=== PATIENT | female | born 1990 | race Caucasian/White ===

== ENCOUNTER 2016-08-23 18:35 | Emergency (ER) | payer OTHER ==
[2016-08-23 19:06] VITALS: BP 116/74; PULSE 69; RESP 18; TEMP 98.1
--- NOTE | 2016-08-23 20:03 | ED ---
ENT HPI - General Chief complaint: ENT Stated complaint: HEARING LOSS LEFT EAR Time Seen by Provider: 08/23/16 19:50 Source: patient, RN notes reviewed, old records reviewed Mode of arrival: ambulatory Limitations: no limitations - History of Present Illness Initial comments: Patient is a 25 year old female with one day of right ear tinnitus and decreased hearing. Patient denies any dizziness or headache. She reports that symptoms started this morning, she denies any loud music, barotrauma, or fevers or other injury. Denies drainage from the ear. 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 Denies any chest pain, shortness of breath, headache, vision changes. - Related Data Previous Rx's Medication Instructions Recorded Amoxicillin 500 mg PO Q12HR #14 cap 08/23/16 Allergies Allergy/AdvReac Type Severity Reaction Status Date / Time No Known Allergies Allergy Verified 08/23/16 19:07 Review of Systems ROS Statement: Those systems with pertinent positive or pertinent negative responses have been documented in the HPI. ROS Other: All systems not noted in ROS Statement are negative. Past Medical History Past Medical History: No Reported History History of Any Multi-Drug Resistant Organisms: None Reported Past Surgical History: No Surgical Hx Reported Additional Past Surgical History / Comment(s): oral surgery Past Psychological History: No Psychological Hx Reported Smoking Status: Never smoker Past Alcohol Use History: Occasional Past Drug Use History: None Reported General Exam Limitations: no limitations General appearance: alert, in no apparent distress Head exam: Present: atraumatic, normocephalic, normal inspection Eye exam: Present: normal appearance, PERRL, EOMI. Absent: scleral icterus, conjunctival injection, periorbital swelling ENT exam: Present: normal exam, normal oropharynx, mucous membranes moist. Absent: TM's normal bilaterally (slight erythema behind right TM, no fluid collection. ) Neck exam: Present: normal inspection. Absent: tenderness, meningismus, lymphadenopathy Respiratory exam: Present: normal lung sounds bilaterally. Absent: respiratory distress, wheezes, rales, rhonchi, stridor Cardiovascular Exam: Present: regular rate, normal rhythm, normal heart sounds. Absent: systolic murmur, diastolic murmur, rubs, gallop, clicks GI/Abdominal exam: Present: soft, normal bowel sounds. Absent: distended, tenderness, guarding, rebound, rigid Extremities exam: Present: normal inspection, full ROM, normal capillary refill. Absent: tenderness, pedal edema, joint swelling, calf tenderness Back exam: Present: normal inspection Neurological exam: Present: alert, oriented X3, CN II-XII intact Psychiatric exam: Present: normal affect, normal mood Skin exam: Present: warm, dry, intact, normal color. Absent: rash Course Vital Signs 08/23/16 19:02 Temperature 98.1 F Pulse Rate 69 Respiratory 18 Rate Blood Pressure 116/74 O2 Sat by Pulse 99 Oximetry Medical Decision Making - Medical Decision Making Patient is a 25 year old female with one day of right ear tinnitus and decreased hearing. Patient denies any dizziness or headache. She reports that symptoms started this morning, she denies any loud music, barotrauma, or fevers or other injury. Denies drainage from the ear. 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 Denies any chest pain, shortness of breath, headache, vision changes. Patient has mild right TM erythema, will be started on amoxicillin. Advised follow up with ENT specialist. Discussed return if fever, or dizziness occur. PAtient agrees to treatment plan and will comply, return parameters discussed. Disposition Clinical Impression: Tinnitus, left ear, Infection of left ear Disposition: HOME SELF-CARE Condition: Good Instructions: Tinnitus (ED) Additional Instructions: Patient advised to take antibiotic prescription. Follow-up with primary care provider. Return to the emergency department if any alarming signs or symptoms occur. Prescriptions: Amoxicillin 500 mg PO Q12HR #14 cap Referrals: Shayla Bella DO [Primary Care Provider] - 1-2 days Antolin Billy MD [STAFF PHYSICIAN] - 1-2 days Time of Disposition: 20:02
== END 2016-08-23 20:07 | disposition home or self-care (01) ==
LOC: EC 18:35
DX: H93.13 Tinnitus, bilateral (principal); H66.92 Otitis media, unspecified, left ear
CPT/HCPCS: 99283

== ENCOUNTER 2020-04-28 22:10 | Emergency (ER) | payer OTHER ==
[2020-04-28 22:26] VITALS: BP 117/77; PULSE 99; RESP 18; TEMP 98
[2020-04-28] MEDS ORDERED: KETOROLAC 15 MG/ML 1 ML VIAL IM STA (23:52)
[2020-04-28] MEDS ORDERED: AMOXIC-POT CLAV 875MG STARTER PACK 2 TAB BTL PO STA (23:52)
[2020-04-28] MEDS ORDERED: ACET/COD 300 MG/30 MG STARTER PACK 6 TAB BTL PO STA (23:52)
--- NOTE | 2020-04-28 23:54 | ED ---
General Adult HPI - General Chief complaint: Animal Bite Stated complaint: Cat Bite infection Time Seen by Provider: 04/28/20 23:28 Source: patient, family Mode of arrival: ambulatory Limitations: no limitations - History of Present Illness Initial comments: 29-year-old female patient presents to the emergency department today for evaluation of Bite to the left ankle and foot. Patient states this occurred Tuesday evening. States over the last 24 hours the area has become red, swollen, and more painful. Denies any drainage from the wounds. States she did cleanse the area at the time of injury. She denies any fever or chills. Denies nausea or vomiting. States denies taking anything for pain prior to arrival. Denies any chance of . States her tetanus vaccine is up-to-date within the last 5 years. Patient denies any recent rash, cough, shortness of breath, chest pain, abdominal pain, nausea, vomiting, diarrhea, constipation, back pain, numbness, tingling, dizziness, weakness, hematuria, dysuria, urinary urgency, urinary frequency, headache, visual changes, or any other complaints. - Related Data Previous Rx's Medication Instructions Recorded Amoxicillin 500 mg PO Q12HR #14 cap 08/23/16 Amoxic-Pot Clav 875-125Mg 1 tab PO Q12HR #20 tablet 04/28/20 [Augmentin 875-125] Ibuprofen [Motrin] 600 mg PO Q8HR PRN #30 tab 04/28/20 Allergies Allergy/AdvReac Type Severity Reaction Status Date / Time No Known Allergies Allergy Verified 08/23/16 19:07 Review of Systems ROS Statement: Those systems with pertinent positive or pertinent negative responses have been documented in the HPI. ROS Other: All systems not noted in ROS Statement are negative. Past Medical History Past Medical History: No Reported History History of Any Multi-Drug Resistant Organisms: None Reported Past Surgical History: No Surgical Hx Reported Additional Past Surgical History / Comment(s): oral surgery Past Psychological History: No Psychological Hx Reported Smoking Status: Never smoker Past Alcohol Use History: Occasional Past Drug Use History: None Reported General Exam Limitations: no limitations General appearance: alert, in no apparent distress, other (This is a well- developed, well-nourished adult female patient in no acute distress. Vital signs upon presentation are temperature 98.0F, pulse 99, respirations 18, blood pressure 117/77, pulse ox 99% on room air.) ENT exam: Present: normal exam, normal oropharynx, mucous membranes moist Respiratory exam: Present: normal lung sounds bilaterally. Absent: respiratory distress, wheezes, rales, rhonchi, stridor Cardiovascular Exam: Present: regular rate, normal rhythm, normal heart sounds. Absent: systolic murmur, diastolic murmur, rubs, gallop, clicks Extremities exam: Present: full ROM, normal capillary refill, other (There is area of erythema, swelling with a central puncture wounds. There is also swelling and erythema noted over the plantar surface of the left foot. Skin is otherwise pink, warm, dry. Cap refill less than 3 seconds. Pedal and posttibial pulses are 2+.). Absent: normal inspection, tenderness, pedal edema, joint swelling, calf tenderness Neurological exam: Present: alert, oriented X3, CN II-XII intact Psychiatric exam: Present: normal affect, normal mood Skin exam: Present: warm, dry, intact, normal color. Absent: rash Course Vital Signs 04/28/20 22:21 Temperature 98.0 F Pulse Rate 99 Respiratory 18 Rate Blood Pressure 117/77 O2 Sat by Pulse 99 Oximetry Medical Decision Making - Medical Decision Making 29-year-old female patient percents to the emergency department today for evaluation of a cat bite to the left ankle and foot. Physical examination did reveal cellulitis over the left ankle and left plantar foot. There are puncture wounds noted. No drainage. She is afebrile normal vital signs. This is her cat and is up to date on immunizations. We will start Augmentin. She is given ibuprofen for symptom relief. She is instructed to follow-up with her primary care physician for recheck in 1-2 days. Return parameters were discussed in detail. She verbalizes understanding and agrees with this plan. Case discussed with my attending Dr. Munson. Disposition Clinical Impression: Cat bite of left ankle, Cellulitis of left ankle Disposition: HOME SELF-CARE Condition: Good Instructions (If sedation given, give patient instructions): Animal Bite (ED), Cellulitis (ED) Additional Instructions: Complete antibiotic prescription in full. Follow-up with your primary care physician for recheck in 1-2 days. Take pain medications as directed. Return to the emergency department for any new, worsening, or concerning symptoms. Prescriptions: Amoxic-Pot Clav 875-125Mg [Augmentin 875-125] 1 tab PO Q12HR #20 tablet Ibuprofen [Motrin] 600 mg PO Q8HR PRN #30 tab PRN Reason: Pain Is patient prescribed a controlled substance at d/c from ED?: No Referrals: None,Stated [Primary Care Provider] - 1-2 days Time of Disposition: 23:54
== END 2020-04-29 00:17 | disposition home or self-care (01) ==
LOC: EC 22:10
DX: L03.116 Cellulitis of left lower limb (principal); S91.032A Puncture wound without foreign body, left ankle, initial encounter; W55.01XA Bitten by cat, initial encounter
CPT/HCPCS: 99283; 96372; J1885

== ENCOUNTER 2022-10-11 21:24 | Observation (INO) | payer OTHER ==
[2022-10-11] MEDS ORDERED: KETOROLAC 15 MG/ML 1 ML VIAL IVP STA (21:42)
[2022-10-11] MEDS ORDERED: SODIUM CHLORIDE 0.9% 1,000 ML IV STA (21:42)
--- NOTE | 2022-10-11 22:05 | ED ---
Abdominal Pain HPI - General Chief Complaint: Abdominal Pain Stated Complaint: Abdominal pain, Nausea Time Seen by Provider: 10/11/22 21:36 Source: patient, RN notes reviewed Mode of arrival: ambulatory Limitations: no limitations - History of Present Illness Initial Comments: This is a 32-year-old female who presents to the emergency department for abdo cecilia pain. States that about a week ago, she was stung by a bee and went to urgent care. She was subsequently started on a course of steroids, which she finished 3 days ago. However, states that just prior to being stung she had been developing upper abdominal pain that seemed to occur in waves and fluctuates. She has associated nausea with this. Unsure if this is related to any specific foods. Denies any history of similar symptoms in the past. Denies any known problems with her gallbladder. Denies any changes in bowel/bladder habits. She has felt hot and sweaty at times, but does not believe that she has actually had a fever. Denies any fevers, chills, sore throat, cough, dyspnea, chest pain, palpitations, diarrhea, back pain, or headaches. MD Complaint: abdominal pain Location: RUQ, epigastric - Related Data Home Medications Medication Instructions Recorded Confirmed EPINEPHrine (Auto Inject) [Epipen] 0.3 mg IM ONCE PRN 10/11/22 10/11/22 Allergies Allergy/AdvReac Type Severity Reaction Status Date / Time bee venom protein (honey bee) AdvReac Swelling Verified 10/11/22 22:23 Review of Systems ROS Statement: Those systems with pertinent positive or pertinent negative responses have been documented in the HPI. ROS Other: All systems not noted in ROS Statement are negative. Past Medical History Past Medical History: No Reported History History of Any Multi-Drug Resistant Organisms: None Reported Past Surgical History: No Surgical Hx Reported Additional Past Surgical History / Comment(s): oral surgery Past Psychological History: No Psychological Hx Reported Smoking Status: Never smoker Past Alcohol Use History: Occasional Past Drug Use History: None Reported General Exam Limitations: no limitations General appearance: alert, in no apparent distress Head exam: Present: atraumatic, normocephalic, normal inspection Respiratory exam: Present: normal lung sounds bilaterally. Absent: respiratory distress, wheezes, rales, rhonchi, stridor Cardiovascular Exam: Present: regular rate, normal rhythm, normal heart sounds. Absent: systolic murmur, diastolic murmur, rubs, gallop, clicks GI/Abdominal exam: Present: soft, tenderness (RUQ), normal bowel sounds. Absent: distended Neurological exam: Present: alert, oriented X3, CN II-XII intact Psychiatric exam: Present: normal affect, normal mood Skin exam: Present: warm, dry, intact, normal color. Absent: rash Course Vital Signs 10/11/22 10/11/22 10/11/22 21:30 22:57 23:31 Temperature 98.4 F Pulse Rate 91 Respiratory 18 16 Rate Blood Pressure 123/83 125/86 117/78 O2 Sat by Pulse 96 97 98 Oximetry Medical Decision Making - Medical Decision Making This is a 32-year-old female who presents to the emergency department for abdominal pain. Was pt. sent in by a medical professional or institution? @ -No Did you speak to anyone other than the patient for history? @ -No Did you review nursing and triage notes? @ -Yes, and I agree, it is accurate with regards to the patient's symptoms. Were old charts reviewed? @ -No Differential Diagnosis? @ -Differential Abdominal Pain Women: Appendicitis, Cholecystitis, diverticulosis, ischemic bowel, pancreatitis, hepatitis, UTI, gastroenteritis, AAA, incarcerated hernia, bowel obstruction, constipation, inflammatory bowel, hepatitis, peptic ulcer disease, splenic infarction, perforated viscus, vulvitis, ovarian torsion, PID, kidney stone, placenta abruption, this is not meant to be an all-inclusive list EKG interpreted by me (3pts min.)? @ -Not obtained X-rays interpreted by me (1pt min.)? @ -Not obtained CT interpreted by me (1pt min.)? @ -Not obtained U/S interpreted by me (1pt. min.)? @ -Gallbladder ultrasound obtained. My interpretation identifies cholelithiasis and gallbladder wall thickening. What testing was considered but not performed? (CT, X-rays, U/S, labs)? Why? @ -None What meds were considered but not given? Why? @ -None Did you discuss the management of the patient with other professionals? @ -Yes, Dr. Delong, who accepts the patient for admission. Did you reconcile home meds? @ -No Was smoking cessation discussed for >3mins.? @ -No Was critical care preformed (if so, how long)? @ -No Were there social determinants of health that impacted care today? How? (Homelessness, low income, unemployed, alcoholism, drug addiction, transportation, low edu. Level, literacy, decrease access to med. care, longterm, rehab)? @ -No Was there de-escalation of care discussed even if they declined? (Discuss DNR or withdrawal of care, Hospice)? @ -No What co-morbidities impacted this encounter? (DM, HTN, Smoking, COPD, CAD, Cancer, CVA, Hep., AIDS, mental health diagnosis, sleep apnea, morbid obesity)? @ -None Was patient admitted / discharged? @ -Admitted. Lab work obtained revealing leukocytosis and was otherwise non actionable. Urinalysis consistent with infection and urine was sent for culture. Patient does report an increase in urinary urgency and frequency, however she states that this is an ongoing intermittent issue for her. She was given IV fluids and Toradol with improvement in symptoms. Gallbladder ultrasound obtained revealing cholelithiasis with gallbladder wall thickening and pericholecystic fluid, consistent with acute cholecystitis. Blood cultures were obtained and the patient was started on IV Zosyn and maintenance fluids. Patient admitted to general surgery for acute cholecystitis. Patient kept NPO. Undiagnosed new problem with uncertain prognosis? @ -None Drug Therapy requiring intensive monitoring for toxicity (Heparin, Nitro, Insulin, Cardizem)? @ -None Were any procedures done? @ -None Diagnosis/symptom? @ -Acute cholecystitis, UTI Acute, or Chronic, or Acute on Chronic? @ -Acute Uncomplicated (without systemic symptoms) or Complicated (systemic symptoms)? @ -Uncomplicated Side effects of treatment? @ -None Exacerbation, Progression, or Severe Exacerbation] @ -Not applicable Poses a threat to life or bodily function? @ -Yes This case was discussed in detail with the attending ED physician, Dr. Louis. Presentation, findings, and treatment plan discussed in detail as well. - Lab Data Result diagrams: 10/11/22 21:54 10/11/22 21:54 Lab Results 10/11/22 10/11/22 10/11/22 Range/Units 21:43 21:54 21:54 WBC 16.0 H (3.8-10.6) k/uL RBC 4.47 (3.80-5.40) m/uL Hgb 13.7 (11.4-16.0) gm/dL Hct 39.7 (34.0-46.0) % MCV 88.8 (80.0-100.0) fL MCH 30.6 (25.0-35.0) pg MCHC 34.5 (31.0-37.0) g/dL RDW 13.2 (11.5-15.5) % Plt Count 344 (150-450) k/uL MPV 7.8 Neutrophils % 72 % Lymphocytes % 16 % Monocytes % 7 % Eosinophils % 4 % Basophils % 0 % Neutrophils # 11.5 H (1.3-7.7) k/uL Lymphocytes # 2.6 (1.0-4.8) k/uL Monocytes # 1.1 H (0-1.0) k/uL Eosinophils # 0.6 (0-0.7) k/uL Basophils # 0.0 (0-0.2) k/uL Sodium 136 L (137-145) mmol/L Potassium 4.2 (3.5-5.1) mmol/L Chloride 99 (98-107) mmol/L Carbon Dioxide 28 (22-30) mmol/L Anion Gap 9 mmol/L BUN 15 (7-17) mg/dL Creatinine 0.56 (0.52-1.04) mg/dL Est GFR (CKD-EPI)AfAm >90 (>60 ml/min/1.73 sqM) Est GFR (CKD-EPI)NonAf >90 (>60 ml/min/1.73 sqM) Glucose 89 (74-99) mg/dL Plasma Lactic Acid Norberto (0.7-2.0) mmol/L Calcium 9.2 (8.4-10.2) mg/dL Total Bilirubin 0.4 (0.2-1.3) mg/dL AST 22 (14-36) U/L ALT 20 (4-34) U/L Alkaline Phosphatase 96 (38-126) U/L Total Protein 7.3 (6.3-8.2) g/dL Albumin 4.0 (3.5-5.0) g/dL Amylase 45 (30-110) U/L Lipase 89 (23-300) U/L HCG, Qual Not Detected Urine Color Light Yellow Urine Appearance Clear (Clear) Urine pH 6.0 (5.0-8.0) Ur Specific [place] 1.011 (1.001-1.035) Urine Protein Negative (Negative) Urine Glucose (UA) 1+ H (Negative) Urine Ketones Negative (Negative) Urine Blood Negative (Negative) Urine Nitrite Positive H (Negative) Urine Bilirubin Negative (Negative) Urine Urobilinogen <2.0 (<2.0) mg/dL Ur Leukocyte Esterase Large H (Negative) Urine RBC 2 (0-5) /hpf Urine WBC 13 H (0-5) /hpf Ur Squamous Epith Cells 2 (0-4) /hpf Urine Bacteria Occasional H (None) /hpf Urine Mucus Rare H (None) /hpf 10/11/22 Range/Units 21:54 WBC (3.8-10.6) k/uL RBC (3.80-5.40) m/uL Hgb (11.4-16.0) gm/dL Hct (34.0-46.0) % MCV (80.0-100.0) fL MCH (25.0-35.0) pg MCHC (31.0-37.0) g/dL RDW (11.5-15.5) % Plt Count (150-450) k/uL MPV Neutrophils % % Lymphocytes % % Monocytes % % Eosinophils % % Basophils % % Neutrophils # (1.3-7.7) k/uL Lymphocytes # (1.0-4.8) k/uL Monocytes # (0-1.0) k/uL Eosinophils # (0-0.7) k/uL Basophils # (0-0.2) k/uL Sodium (137-145) mmol/L Potassium (3.5-5.1) mmol/L Chloride (98-107) mmol/L Carbon Dioxide (22-30) mmol/L Anion Gap mmol/L BUN (7-17) mg/dL Creatinine (0.52-1.04) mg/dL Est GFR (CKD-EPI)AfAm (>60 ml/min/1.73 sqM) Est GFR (CKD-EPI)NonAf (>60 ml/min/1.73 sqM) Glucose (74-99) mg/dL Plasma Lactic Acid Norberto 0.8 (0.7-2.0) mmol/L Calcium (8.4-10.2) mg/dL Total Bilirubin (0.2-1.3) mg/dL AST (14-36) U/L ALT (4-34) U/L Alkaline Phosphatase (38-126) U/L Total Protein (6.3-8.2) g/dL Albumin (3.5-5.0) g/dL Amylase (30-110) U/L Lipase (23-300) U/L HCG, Qual Urine Color Urine Appearance (Clear) Urine pH (5.0-8.0) Ur Specific [place] (1.001-1.035) Urine Protein (Negative) Urine Glucose (UA) (Negative) Urine Ketones (Negative) Urine Blood (Negative) Urine Nitrite (Negative) Urine Bilirubin (Negative) Urine Urobilinogen (<2.0) mg/dL Ur Leukocyte Esterase (Negative) Urine RBC (0-5) /hpf Urine WBC (0-5) /hpf Ur Squamous Epith Cells (0-4) /hpf Urine Bacteria (None) /hpf Urine Mucus (None) /hpf - Radiology Data Radiology results: report reviewed, image reviewed Disposition Clinical Impression: Acute cholecystitis, UTI (urinary tract infection) Disposition: ADMITTED IP TO THIS HOSP
[2022-10-11 22:32] LABS: HCG,Qualitative Serum Not Detected
[2022-10-11 22:34] LABS: ALT 20 U/L (4-34); AST 22 U/L (14-36); African American GFR (CKD) >90 (>60 ml/min/1.73 sqM); Alkaline Phosphatase 96 U/L (38-126); Amylase 45 U/L (30-110); Anion Gap 9 mmol/L; Blood Urea Nitrogen 15 mg/dL (7-17); Calcium 9.2 mg/dL (8.4-10.2); Carbon Dioxide 28 mmol/L (22-30); Chloride 99 mmol/L (98-107); Glucose 89 mg/dL (74-99); Lipase 89 U/L (23-300); Non-African American GFR(CKD) >90 (>60 ml/min/1.73 sqM); Potassium 4.2 mmol/L (3.5-5.1); Sodium 136 mmol/L (137-145); Total Bilirubin 0.4 mg/dL (0.2-1.3); Total Protein 7.3 g/dL (6.3-8.2)
[2022-10-11 22:36] LABS: Basophils % (A) 0 %; Eosinophils # (A) 0.6 k/uL (0-0.7); Eosinophils % (A) 4 %; HCT 39.7 % (34.0-46.0); HGB 13.7 gm/dL (11.4-16.0); Lymphocytes # (A) 2.6 k/uL (1.0-4.8); Lymphocytes % (A) 16 %; MCH 30.6 pg (25.0-35.0); MCHC 34.5 g/dL (31.0-37.0); MCV 88.8 fL (80.0-100.0); Mean Platelet Volume 7.8; Monocytes # (A) 1.1 k/uL (0-1.0); Monocytes % (A) 7 %; Neutrophils # (A) 11.5 k/uL (1.3-7.7); Neutrophils % (A) 72 %; Platelet Count 344 k/uL (150-450); RBC 4.47 m/uL (3.80-5.40); RDW 13.2 % (11.5-15.5)
[2022-10-11 22:57] LABS: Appearance,Urine Clear (Clear); Bacteria,Urine Occasional /hpf; Bilirubin,Urine Negative (Negative); Blood,Urine Negative (Negative); Color,Urine Light Yellow; Glucose,Urine (UA) 1+ (Negative); Ketones,Urine Negative (Negative); Leukocyte Esterase,Urine Large (Negative); Mucus,Urine Rare /hpf; Nitrite,Urine Positive (Negative); Protein,Urine Negative (Negative); RBC,Urine 2 /hpf (0-5); Specific Gravity,Urine 1.011 (1.001-1.035); Squamous Epithelial Cell,Urine 2 /hpf (0-4); Urobilinogen,Urine <2.0 mg/dL (<2.0); WBC,Urine 13 /hpf (0-5)
[2022-10-11] MEDS ORDERED: cefTRIAXone IN SWFI 1,000 MG/10 ML SYRINGE IVP STA (23:46)
--- NOTE | 2022-10-11 23:58 | US ---
EXAM: US Abdomen Limited, Gallbladder CLINICAL HISTORY: US Reason: RUQ pain TECHNIQUE: Real-time ultrasound of the right upper quadrant with image documentation. COMPARISON: No relevant prior studies available. FINDINGS: Liver: The liver measures 17.1 cm with normal echotexture. No focal liver lesion is seen. The portal vein is patent with normal hepatopetal flow. Gallbladder: There are multiple shadowing stones measure up to 1.5 cm within the gallbladder. The wall is thickened up to 1 cm with pericholecystic fluid consistent with acute cholecystitis. Common bile duct: The common bile duct is obscured. No stones. No dilation. Pancreas: The pancreas is obscured by bowel gas. Right kidney: The right kidney measures 10.3 cm with normal appearance. No hydronephrosis. IMPRESSION: There are multiple shadowing stones measure up to 1.5 cm within the gallbladder. The wall is thickened up to 1 cm with pericholecystic fluid consistent with acute cholecystitis. Sonographic Fischer sign is negative.
[2022-10-12] MEDS ORDERED: SODIUM CHLORIDE 0.9% 1,000 ML IV STA
[2022-10-12] MEDS ORDERED: PIPERACILLIN-TAZOBACTAM 3.375 GM in SODIUM CHLORIDE 0.9% 100 ML IVPB STA (00:02)
[2022-10-12] MEDS ORDERED: HYDROmorphone 0.5 MG/0.5 ML SYRINGE IVP PRN ×2 (00:07→11:48)
[2022-10-12] MEDS ORDERED: NALOXONE 0.4 MG/ML 1 ML VIAL IV PRN ×2 (00:07→11:48)
[2022-10-12] MEDS ORDERED: ONDANSETRON 4 MG/2 ML VIAL IVP PRN ×2 (00:07→11:48)
[2022-10-12] MEDS ORDERED: HYDROmorphone 1 MG/ML 1 ML SYRINGE IVP PRN (00:07)
[2022-10-12] MEDS ORDERED: ACETAMINOPHEN IV (For NPO) 1,000 MG in EMPTY BAG 1 BAG IVPB PRN (00:11)
[2022-10-12] MEDS ORDERED: LORazepam 1 MG TAB PO STA (01:01)
[2022-10-12] MEDS ORDERED: LORazepam 2 MG/ML INJ IV ONE (02:15)
[2022-10-12] MEDS ORDERED: HEPARIN SODIUM,PORCINE/PF 5,000 UNIT/0.5 ML SYRINGE SQ ONE (09:15)
[2022-10-12] MEDS: PIPERACILLIN-TAZOBACTAM 3.375 GM in SODIUM CHLORIDE 0.9% 100 ML IVPB SCH ×2 (09:19→18:06)
[2022-10-12] MEDS ORDERED: ACETAMINOPHEN TAB 500 MG TAB ONE (09:28)
[2022-10-12] MEDS ORDERED: ONDANSETRON 4 MG/2 ML VIAL IVP ONE (09:43)
[2022-10-12] MEDS ORDERED: LACTATED RINGERS 1,000 ML IV ONE ×2 (09:43→11:48)
[2022-10-12] MEDS ORDERED: DEXAMETHASONE SOD PHOSPHATE 4 MG/ML 1 ML VIAL IVP ONE (09:44)
[2022-10-12] MEDS ORDERED: IV FLUID CONTINUATION 100 ML IV ONE (10:02)
[2022-10-12] MEDS ORDERED: HEPARIN SODIUM,PORCINE 5,000 UNIT/ML 1 ML VIAL SQ ONE (10:05)
--- NOTE | 2022-10-12 10:32 | P.GSHP ---
History of Present Illness H&P Date: 10/12/22 Chief Complaint: Right upper quadrant pain This a 32-year-old female who was seen emergency room due to abdominal pain. Patient states that 3 or 4 day history of intermittent right upper quadrant pain. Patient also shows evidence of cholelithiasis and thickened gallbladder wall with pericholecystic fluid. Patient was admitted for acute cholecystitis. Past Medical History Past Medical History: No Reported History History of Any Multi-Drug Resistant Organisms: None Reported Past Surgical History: No Surgical Hx Reported Additional Past Surgical History / Comment(s): oral surgery Past Psychological History: No Psychological Hx Reported Smoking Status: Never smoker Past Alcohol Use History: Occasional Past Drug Use History: None Reported Medications and Allergies Home Medications Medication Instructions Recorded Confirmed Type EPINEPHrine (Auto Inject) [Epipen] 0.3 mg IM ONCE PRN 10/11/22 10/11/22 History Allergies Allergy/AdvReac Type Severity Reaction Status Date / Time bee venom protein (honey bee) AdvReac Swelling Verified 10/11/22 22:23 Surgical - Exam Vital Signs Temp Pulse Resp BP Pulse Ox 98.4 F 91 18 123/83 96 10/11/22 21:30 10/11/22 21:30 10/11/22 21:30 10/11/22 21:30 10/11/22 21:30 - General well developed, well nourished, no distress - Eyes PERRL - ENT normal pinna - Neck no masses - Respiratory normal expansion - Cardiovascular Rhythm: regular - Abdomen Mild right upper quadrant pain, no guarding no rebound Abdomen: soft Results - Labs 10/11/22 21:54 10/11/22 21:54 Abnormal Lab Results - Last 24 Hours (Table) 10/11/22 10/11/22 10/11/22 Range/Units 21:43 21:54 21:54 WBC 16.0 H (3.8-10.6) k/uL Neutrophils # 11.5 H (1.3-7.7) k/uL Monocytes # 1.1 H (0-1.0) k/uL Sodium 136 L (137-145) mmol/L Urine Glucose (UA) 1+ H (Negative) Urine Nitrite Positive H (Negative) Ur Leukocyte Esterase Large H (Negative) Urine WBC 13 H (0-5) /hpf Urine Bacteria Occasional H (None) /hpf Urine Mucus Rare H (None) /hpf Diabetes panel 10/11/22 Range/Units 21:54 Sodium 136 L (137-145) mmol/L Potassium 4.2 (3.5-5.1) mmol/L Chloride 99 (98-107) mmol/L Carbon Dioxide 28 (22-30) mmol/L BUN 15 (7-17) mg/dL Creatinine 0.56 (0.52-1.04) mg/dL Glucose 89 (74-99) mg/dL Calcium 9.2 (8.4-10.2) mg/dL AST 22 (14-36) U/L ALT 20 (4-34) U/L Alkaline Phosphatase 96 (38-126) U/L Total Protein 7.3 (6.3-8.2) g/dL Albumin 4.0 (3.5-5.0) g/dL Calcium panel 10/11/22 Range/Units 21:54 Calcium 9.2 (8.4-10.2) mg/dL Albumin 4.0 (3.5-5.0) g/dL Pituitary panel 10/11/22 Range/Units 21:54 Sodium 136 L (137-145) mmol/L Potassium 4.2 (3.5-5.1) mmol/L Chloride 99 (98-107) mmol/L Carbon Dioxide 28 (22-30) mmol/L BUN 15 (7-17) mg/dL Creatinine 0.56 (0.52-1.04) mg/dL Glucose 89 (74-99) mg/dL Calcium 9.2 (8.4-10.2) mg/dL Adrenal panel 10/11/22 Range/Units 21:54 Sodium 136 L (137-145) mmol/L Potassium 4.2 (3.5-5.1) mmol/L Chloride 99 (98-107) mmol/L Carbon Dioxide 28 (22-30) mmol/L BUN 15 (7-17) mg/dL Creatinine 0.56 (0.52-1.04) mg/dL Glucose 89 (74-99) mg/dL Calcium 9.2 (8.4-10.2) mg/dL Total Bilirubin 0.4 (0.2-1.3) mg/dL AST 22 (14-36) U/L ALT 20 (4-34) U/L Alkaline Phosphatase 96 (38-126) U/L Total Protein 7.3 (6.3-8.2) g/dL Albumin 4.0 (3.5-5.0) g/dL - Imaging Additional studies: Ultrasound shows a thickened gallbladder wall measuring 1 cm, Lysis fluid, multiple large gallstones Assessment and Plan Assessment: Acute cholecystitis/lithiasis. Patient undergo laparoscopic cholecystectomy.
[2022-10-12] MEDS ORDERED: KETOROLAC 30 MG/ML 1 ML VIAL ONE (10:50)
[2022-10-12] MEDS ORDERED: MIDAZOLAM 2 MG/2 ML VIAL ONE (10:50)
[2022-10-12] MEDS ORDERED: fentaNYL (PF) 50 MCG/ML 2 ML AMP ONE (10:50)
[2022-10-12] MEDS ORDERED: GLYCOPYRROLATE 0.2 MG/ML 2 ML VIAL ONE (10:50)
[2022-10-12] MEDS ORDERED: ROCURONIUM 10 MG/ML (5 ML VIAL) IV ONE (10:50)
[2022-10-12] MEDS ORDERED: HYDROmorphone (PF) 1 MG/ML ONE (10:50)
[2022-10-12] MEDS ORDERED: SUCCINYLCHOLINE CHLORIDE 200 MG/10 ML VIAL IV ONE (10:50)
[2022-10-12] MEDS ORDERED: LIDOCAINE 2% INJ 20 MG/ML (2 ML VIAL) ONE (10:50)
[2022-10-12] MEDS ORDERED: NEOSTIGMINE 1 MG/ML 10 ML VIAL ONE (10:50)
[2022-10-12] MEDS ORDERED: PROPOFOL 10 MG/ML 20 ML VIAL IV ONE (10:50)
[2022-10-12] MEDS ORDERED: BUPIVACAINE (PF) 0.5% 30 ML VIAL SQ ONE ×2 (11:05→11:08)
[2022-10-12] MEDS ORDERED: ACETAMINOPHEN TAB 325 MG TAB PO PRN (11:48)
[2022-10-12] MEDS ORDERED: HYDROcodone/APAP 5-325MG 1 EACH TAB PO PRN (11:48)
--- NOTE | 2022-10-12 11:48 | P.OP ---
Date of Procedure: 10/12/22 Preoperative Diagnosis: Acute cholecystitis Postoperative Diagnosis: Acute cholecystitis with patchy necrosis Procedure(s) Performed: Laparoscopic cholecystectomy Anesthesia: ADRIANA Surgeon: Alessandro Delong Estimated Blood Loss (ml): 20 Pathology: other (Gallbladder) Condition: stable Disposition: PACU Description of Procedure: The patient was placed on the operating table. The patient received a general endotracheal tube anesthesia. The patients abdomen was prepped and draped in the usual sterile fashion. Through an infraumbilical stab incision, the fascia of the anterior abdominal wall was grasped with a pair of Kochers and then the Veress needle was placed in the peritoneal cavity. Position of the Veress needle was confirmed with positive drop test. The abdomen was then insufflated. After adequate insufflation, the 10 mm trocar was placed in the pe ritoneal cavity. Following this the laparoscope was placed in the peritoneal cavity. The patient was placed in the head-up, right side up position and then a 5 mm trocar was placed in the right lateral and right subcostal position under direct visualization. A 8 mm trocar was placed in the epigastric position. The gallbladder was grasped in the fundus and infundibulum. Traction on the gallbladder was placed in the lateral and the cephalad positions. The triangle of Calot was visualized.. The cystic duct was bluntly dissected until the union of the cystic duct and common bile duct was seen. A critical view of safety was achieved. The cystic duct was then divided and sealed with the Harmonic scissors. And a 5 mm laparoscopic clips. p. The cystic artery divided and sealed with the Harmonic scissors. The gallbladder was then removed from the liver bed using Harmonic scissors. The gallbladder was then extracted through the epigastric port site with a 5 mm Endo Catch.. Operative field was checked for any bleeding spots and Harmonic scissors was used to coagulate the liver bed. The abdomen was irrigated. The trocars were removed. The skin was closed using interrupted 3-0 Vicryl suture. Dermabond dressing were applied. The patient tolerated the procedure well.
[2022-10-12] MEDS: KETOROLAC 15 MG/ML 1 ML VIAL IVP SCH ×2 (12:46→18:06)
[2022-10-12] MEDS: PANTOPRAZOLE 40 MG/10 ML VIAL IVP SCH (18:06)
[2022-10-12 20:10] VITALS: RESP 16
[2022-10-13] MEDS: PIPERACILLIN-TAZOBACTAM 3.375 GM in SODIUM CHLORIDE 0.9% 100 ML IVPB SCH ×2 (01:05→08:30)
[2022-10-13] MEDS: KETOROLAC 15 MG/ML 1 ML VIAL IVP SCH ×3 (01:06→12:33)
[2022-10-13 08:07] VITALS: BP 111/66; PULSE 95; TEMP 98.6
[2022-10-13] MEDS: PANTOPRAZOLE 40 MG/10 ML VIAL IVP SCH (08:29)
[2022-10-13 08:30] LABS: Basophils # (A) 0.1 k/uL (0-0.2); Basophils % (A) 0 %; Eosinophils # (A) 0.2 k/uL (0-0.7); Eosinophils % (A) 2 %; HCT 40.6 % (34.0-46.0); HGB 13.6 gm/dL (11.4-16.0); Lymphocytes # (A) 2.8 k/uL (1.0-4.8); Lymphocytes % (A) 21 %; MCH 30.5 pg (25.0-35.0); MCHC 33.5 g/dL (31.0-37.0); MCV 91.1 fL (80.0-100.0); Mean Platelet Volume 7.8; Monocytes # (A) 0.8 k/uL (0-1.0); Monocytes % (A) 6 %; Neutrophils # (A) 9.7 k/uL (1.3-7.7); Neutrophils % (A) 71 %; Platelet Count 396 k/uL (150-450); RBC 4.46 m/uL (3.80-5.40); RDW 13.3 % (11.5-15.5); WBC 13.7 k/uL (3.8-10.6)
[2022-10-13] MEDS ORDERED: ENOXAPARIN 40 MG/0.4 ML SYRINGE SQ SCH (09:00)
--- NOTE | 2022-10-13 10:01 | P.DS ---
Providers Date of admission: 10/12/22 00:03 Expected date of discharge: 10/13/22 Attending physician: Alessandro Delong Consults: 10/12/22 11:48 Consult Physician Routine Consulting Provider: Zay Bella Consult Reason/Comments: med manage Do you want consulting provider notified?: Yes Primary care physician: Krysta Miles Hospital Course: Discharge diagnosis 1. Acute cholecystitis with patchy necrosis status post laparoscopic cholecystectomy Hospital course This is a 32-year-old female who presented with right upper quadrant abdominal pain and ultrasound had shown evidence of cholelithiasis and thickened gallbladder wall with pericholecystic fluid. She is status post laparoscopic cholecystectomy for acute cholecystitis and patchy necrosis of the gallbladder. Patient reports her pain is controlled. She has been up and ambulating. She is having flatus. Tolerating diet. She is afebrile. She is stable for discharge. Please refer to chart for any further details. Physician Wall Mirror Department Supervisor note has been reviewed by physician. Signing provider agrees with the documented findings, assessment, and plan of care. Patient Condition at Discharge: Stable Plan - Discharge Summary Discharge Rx Participant: Yes New Discharge Prescriptions: New Acetaminophen Tab [Tylenol] 1,000 mg PO Q6HR PRN #30 tablet PRN Reason: Pain Ibuprofen [Motrin] 600 mg PO Q8HR PRN #30 tab PRN Reason: Pain oxyCODONE HCL [OxyIR] 5 mg PO Q6H PRN 3 Days #12 tab PRN Reason: Pain Continue EPINEPHrine (Auto Inject) [Epipen] 0.3 mg IM ONCE PRN PRN Reason: Anaphylaxis Discharge Medication List EPINEPHrine (Auto Inject) [Epipen] 0.3 mg IM ONCE PRN 10/11/22 [History] Acetaminophen Tab [Tylenol] 1,000 mg PO Q6HR PRN #30 tablet 10/13/22 [Rx] Ibuprofen [Motrin] 600 mg PO Q8HR PRN #30 tab 10/13/22 [Rx] oxyCODONE HCL [OxyIR] 5 mg PO Q6H PRN 3 Days #12 tab 10/13/22 [Rx] Follow up Appointment(s)/Referral(s): Krysta Miles PAC [Primary Care Provider] - 1-2 days Alessandro Delong MD [STAFF PHYSICIAN] - 10/19/22 Activity/Diet/Wound Care/Special Instructions: No driving while taking OxyIR No lifting over 7 pounds Shower daily. No soaking or tub baths for 2 weeks Very light activity until you are reevaluated at your follow up appointment with your surgeon Avoid greasy food Discharge Disposition: HOME SELF-CARE
--- NOTE | 2022-10-13 10:43 | P.CONS ---
History of Present Illness - Reason for Consult Consult date: 10/13/22 medical management Requesting physician: Alessandro Delong - Chief Complaint acute cholecystitis, status post laparoscopic cholecystectomy - History of Present Illness This is a 32-year-old female status post laparoscopic cholecystectomy, POD #1. Tolerated procedure well. Gallbladder ultrasound reported multiple shadowing stones measuring up to 1.5 cm within the gallbladder, wall thickened up to 1 cm with pericholecystic fluid consistent with acute cholecystitis, common bile duct obscured, no stones, no dilation, sonographic Fischer sign negative. Patient also presented with acute UTI, UA reporting occasional bacteria, large leukocytes, positive nitrates. Final urine and blood culture results pending. Afebrile. Maintained on IV fluid hydration and antibiotics of Zosyn, WBC 16 on admission, decreased to 13.7. Ambulating, tolerating exertion well. Denies lightheadedness, dizziness or focal deficits. Pain better controlled, minimal at rest. Tolerating diet, denies nausea ,vomiting. Renal function stable. Passing flatus. Denies chest pain, palpitations or shortness of breath. Denies chills or sweats. Review of Systems Constitutional: Denied any fatigue denied any fever. Cardio vascular: denied any chest pain, palpitations Gastrointestinal denied any nausea vomiting Pulmonary: Denied any shortness of breath cough Neurologic denied any new focal deficits ROS Statement: Those systems with pertinent positive or pertinent negative responses have been documented in the HPI. ROS Other: All systems not noted in ROS Statement are negative. Past Medical History Past Medical History: No Reported History History of Any Multi-Drug Resistant Organisms: None Reported Past Surgical History: No Surgical Hx Reported Additional Past Surgical History / Comment(s): oral surgery Past Psychological History: No Psychological Hx Reported Smoking Status: Unknown if ever smoked Past Alcohol Use History: Occasional Past Drug Use History: None Reported Medications and Allergies Home Medications Medication Instructions Recorded Confirmed Type EPINEPHrine (Auto Inject) [Epipen] 0.3 mg IM ONCE PRN 10/11/22 10/11/22 History Acetaminophen Tab [Tylenol] 1,000 mg PO Q6HR PRN #30 tablet 10/13/22 Rx Ibuprofen [Motrin] 600 mg PO Q8HR PRN #30 tab 10/13/22 Rx oxyCODONE HCL [OxyIR] 5 mg PO Q6H PRN 3 Days #12 tab 10/13/22 Rx Allergies Allergy/AdvReac Type Severity Reaction Status Date / Time bee venom protein (honey bee) AdvReac Swelling Verified 10/11/22 22:23 Physical Exam Vitals: Vital Signs Temp Pulse Resp BP BP Pulse Ox 10/13/22 07:00 98.6 F 95 16 111/66 99 10/13/22 02:28 98.0 F 63 16 120/83 98 10/12/22 19:51 97.7 F 77 16 115/73 99 10/12/22 15:44 83 114/67 10/12/22 14:44 83 118/76 10/12/22 14:14 94 116/78 10/12/22 13:44 70 109/72 10/12/22 13:29 64 113/74 10/12/22 13:14 65 111/74 10/12/22 12:59 65 115/80 10/12/22 12:44 97.6 F 81 127/85 94 L 10/12/22 12:31 77 12 116/69 97 10/12/22 12:15 74 12 118/73 100 10/12/22 12:00 89 12 128/84 98 10/12/22 11:49 98 F 99 12 139/76 97 Intake and Output 10/12/22 10/13/22 10/13/22 22:59 06:59 14:59 Intake Total 591 Balance 591 Intake: Oral 591 Other: # Voids 1 4 PHYSICAL EXAM: VITAL SIGNS: As above GENERAL: Sitting up in bed, no acute distress HEENT: Normocephalic, Conjunctivae normal. eyes normal. MMM. NECK: Supple, No JVD. No thyroid enlargement. No LNs CARDIOVASCULAR: S1, S2 regular.. No murmur RESPIRATION: Unlabored, equal air entry , clear to auscultation. ABDOMEN: Soft, status post surgery, diffuse tenderness. No guarding. Positive bowel sounds. LEGS: No edema. no swelling. PSYCHIATRY: Alert and oriented X3, mood and affect normal. NERVOUS SYSTEM: Cranial N 2-12 grossly normal. No focal deficits. Strength and sensation grossly intact. Skin: Warm and dry, no rash. Results CBC & Chem 7: 10/13/22 08:10 10/11/22 21:54 Labs: Abnormal Lab Results - Last 24 Hours (Table) 10/13/22 Range/Units 08:10 WBC 13.7 H (3.8-10.6) k/uL Neutrophils # 9.7 H (1.3-7.7) k/uL Assessment and Plan Assessment: Acute cholecystitis with patchy necrosis status post laparoscopic cholecystectomy Leukocytosis, secondary to the above, improving Acute UTI, final culture results pending. Plan: Continue on current medication regime ,monitoring and symptomatic treatment. Antibiotic therapy completed for UTI. Final urine and blood culture results to be faxed to PCP. Increase ambulation as tolerated. Discharge planning in progress as per primary. Follow-up with PCP in one week. Thank you for the consult. The impression and plan of care has been dictated as directed. : I performed a history and examination of this patient, discussed the same with the dictator. I agree with the dictator's note ,documented as a scribe. Any additional findings or plans will be noted.
== END 2022-10-13 14:10 | disposition home or self-care (01) ==
LOC: EC 21:24 → 6NMEDSUR 10-12 00:03
PROVIDERS: ADMIT Surgery; ATTEND Surgery
DX: K80.00 Calculus of gallbladder with acute cholecystitis without obstruction (principal); N39.0 Urinary tract infection, site not specified; B96.89 Other specified bacterial agents as the cause of diseases classified elsewhere; Z91.030 Bee allergy status
CPT/HCPCS: 96361; 96365; 96366; 96375; 99285; 36415; 81025; 88304; 80053; 82150; 83605; 83690; 85025 ×2; 81001; 84703; 87040; 87086; 87077; 87186; 76705; 47562; G0378 ×2; J2543 ×2; J2250; J0330; J2060; J1644; J1100; J2710; J2405; J3010; J1885 ×3; J1170; J2704; C9113 ×2; J2001; J0665